=== PATIENT | female | born 1965 | race Caucasian/White ===

== ENCOUNTER 2018-12-04 20:28 | Inpatient (IN) ==
--- NOTE | 2018-12-04 20:33 | Emergency Department Note ---
Disposition Clinical Impression: Suicidal ideations UTI (urinary tract infection) Qualifiers: Urinary tract infection type: acute cystitis Hematuria presence: without h ematuria Qualified Code(s): N30.00 - Acute cystitis without hematuria Disposition: Still a Patient Condition: Good Instructions: Urinary Tract Infection in Children (ED), Depression (ED) Reasons to Return/Additional Instructions: Return to the emergency department if you have any worsening of your current symptoms, or if you develop any new symptoms. Take all medications as prescribed. Follow emergency department visit by setting up an appointment with psychiatry as well as your primary care doctor within 5 days. Prescriptions: cephALEXin [Keflex] 500 mg PO BID #14 capsule Time of Disposition: 21:51 General Adult HPI - General Stated complaint: SI Time Seen by Provider: 12/04/18 20:32 Nursing Notes Reviewed: Yes Vital Signs Reviewed: Yes - History of Present Illness HPI Narrative: 53-year-old female with past history depression presents emergency department with suicidal ideations. Patient states she has been depressed lately, but has started to feel as if she wants to go into the middle of the road and Struck by a semi-. She states that she has never had a suicide attempt in the past, but has experienced suicidal ideations. Patient reports no auditory or visual hallucinations. Denies any other complaints at this time. States she took half of the gabapentin today for her left knee pain. She states that this is not a prescription of hers. - Related Data Previous Rx's Medication Instructions Recorded cephALEXin [Keflex] 500 mg PO BID #14 capsule 12/04/18 Allergies Allergy/AdvReac Type Severity Reaction Status Date / Time No Known Allergies Allergy Verified 06/09/18 04:30 All systems ED: reviewed and negative except as stated. Review of Systems: As Per HPI Constitutional: Denies: fever Cardiovascular: Denies: chest pain Psychiatric: Reports: depression, suicidal thoughts Past Medical History - Past Medical History Attestation: Yes The following information was validated with the patient. Medical history: Reports: no medical history Psychiatric history: Reports: anxiety, bipolar, depression - Social History Smoking Status: Current every day smoker Alcohol use: Reports: rarely, recent Drug use: Reports: none Physical Exam - General Limitations: no limitations General appearance: alert, in no apparent distress - Head Head exam: normocephalic - Eye Eye exam: Present: EOMI - ENT ENT exam: mucous membranes moist - Neck Neck exam: Present: trachea midline - Chest Chest inspection: Present: symmetric chest wall rise - Respiratory Respiratory exam: Present: normal lung sounds bilaterally. Absent: respiratory distress, accessory muscle use - Cardiovascular Cardiovascular exam: Present: regular rate, normal rhythm, normal heart sounds - Abdominal Exam Abdominal exam: Present: soft, Non-Tender. Absent: distention, guarding, rebound, rigidity - Extremities Exam Extremities exam: Present: full ROM, normal capillary refill - Back Exam Back exam: Present: full ROM - Neurological Exam Neurological exam: Present: alert, oriented X3 - Psychiatric Psychiatric exam: Present: depressed, suicidal ideation. Absent: manic, homicidal ideation - Skin Skin exam: Present: warm, dry, intact, normal color. Absent: rash Course Vital Signs Temperature 97.5 F L 12/04/18 20:33 Pulse Rate 70 12/04/18 20:33 Respiratory Rate 17 12/04/18 20:33 Blood Pressure 129/87 12/04/18 20:33 O2 Sat by Pulse Oximetry 97 12/04/18 20:33 Temperature 97.5 F L 12/04/18 20:33 Pulse Rate 70 12/04/18 20:33 Respiratory Rate 17 12/04/18 20:33 Blood Pressure 129/87 12/04/18 20:33 O2 Sat by Pulse Oximetry 97 12/04/18 20:33 Oxygen Delivery Oxygen Delivery Room Air Medical Decision Making - [facility] Narrative Medical decision making narrative: 53-year-old female presents emergency department with concern for suicidal ideations. We are obtaining labs. Patient does have evidence of urinary tract infection. Give first dose of Keflex here. Wrote a prescription for 7 days. Awaiting 1A to evaluate patient at time of shift change. Patient to be signed out to Dr. Ching and Dr. Bradshaw. - Lab Data Result diagrams: 12/04/18 20:40 12/04/18 20:40 Lab Results 12/04/18 12/04/18 12/04/18 Range/Units 20:40 20:40 20:56 WBC 7.4 (4.3-11.1) K/mcL RBC 4.09 (3.82-4.97) M/mcL Hgb 13.2 (11.5-15.4) g/dL Hct 39.4 (35.3-44.9) % MCV 96.3 (83.0-100.0) fL MCH 32.3 (28.0-33.3) pg MCHC 33.5 (31.6-35.5) g/dL RDW 12.3 (11.5-14.5) % Plt Count 246 (140-400) K/mcL MPV 10.0 (9.4-12.4) fL Immature Gran % 0.1 (0-4) % Seg Neutrophils % 61.9 % Lymphocytes % 27.7 % Monocytes % 5.1 % Eosinophils % 4.7 % Basophils % 0.5 % Neutrophils # 4.6 (1.6-8.9) K/mcL Lymphocytes # 2.1 (0.6-4.6) K/mcL Monocytes # 0.4 (0.0-1.3) K/mcL Eosinophils # 0.4 (0.0-0.6) K/mcL Basophils # 0.0 (0.0-0.2) K/mcL Sodium 141 (136-145) mEq/L Potassium 3.5 (3.5-5.1) mEq/L Chloride 110 H (98-107) mEq/L Carbon Dioxide 22 L (23-29) mEq/L BUN 7 (6-20) mg/dL Creatinine 0.75 (0.60-1.20) mg/dL Est GFR ( Amer) > 60 (> 60) Est GFR (Non-Af Amer) > 60 (> 60) BUN/Creatinine Ratio 9 (6-26) Glucose 95 (70-105) mg/dL Calculated Osmolality 290 (280-300) Calcium 9.2 (8.6-10.3) mg/dL Urine Color Yellow (Yellow) Urine Clarity Clear (Clear) Urine pH 6.0 (5.0-8.0) pH Units Ur Specific [place] 1.009 L (1.010-1.025) Urine Protein Negative (Neg-Trace) mg/dL Urine Glucose (UA) Normal (Normal) mg/dL Urine Ketones Negative (Negative) mg/dL Urine Blood Negative (Negative) Urine Nitrite Positive A (Negative) Urine Bilirubin Negative (Negative) Urine Urobilinogen Normal (Normal) mg/dL Ur Leukocyte Esterase Small H (Negative) Urine Microscopic RBC 0-3 (0-3) per hpf Urine Microscopic WBC 5-15 H (0-3) per hpf Ur Squamous Epith Cells Few (None-Few) per lpf Urine Bacteria Many H (None-Few) per hpf Hyaline Casts None Seen (None-Few) per lpf Salicylates < 2.5 L (15.0-30.0) mg/dL Urine Opiates Screen (Vtzhqm=521) ng/mL Ur Buprenorphine Scrn (Cutoff=5) ng/mL Acetaminophen < 10 L (10-20) mcg/mL Ur Barbiturates Screen (Nkcpfv=931) ng/mL Ur Phencyclidine Scrn (Cutoff=25) ng/mL Ur Amphetamines Screen (Zqaivu=6782) ng/mL U Benzodiazepines Scrn (Zqsetk=498) ng/mL Urine Cocaine Screen (Cutoff= 300) ng/mL U Marijuana (THC) Screen (Cutoff = 50) ng/mL Ur Drug Screen Interp Ethyl Alcohol < 10 (Less than 10) mg/dL 12/04/18 Range/Units 20:56 WBC (4.3-11.1) K/mcL RBC (3.82-4.97) M/mcL Hgb (11.5-15.4) g/dL Hct (35.3-44.9) % MCV (83.0-100.0) fL MCH (28.0-33.3) pg MCHC (31.6-35.5) g/dL RDW (11.5-14.5) % Plt Count (140-400) K/mcL MPV (9.4-12.4) fL Immature Gran % (0-4) % Seg Neutrophils % % Lymphocytes % % Monocytes % % Eosinophils % % Basophils % % Neutrophils # (1.6-8.9) K/mcL Lymphocytes # (0.6-4.6) K/mcL Monocytes # (0.0-1.3) K/mcL Eosinophils # (0.0-0.6) K/mcL Basophils # (0.0-0.2) K/mcL Sodium (136-145) mEq/L Potassium (3.5-5.1) mEq/L Chloride (98-107) mEq/L Carbon Dioxide (23-29) mEq/L BUN (6-20) mg/dL Creatinine (0.60-1.20) mg/dL Est GFR ( Amer) (> 60) Est GFR (Non-Af Amer) (> 60) BUN/Creatinine Ratio (6-26) Glucose (70-105) mg/dL Calculated Osmolality (280-300) Calcium (8.6-10.3) mg/dL Urine Color (Yellow) Urine Clarity (Clear) Urine pH (5.0-8.0) pH Units Ur Specific [place] (1.010-1.025) Urine Protein (Neg-Trace) mg/dL Urine Glucose (UA) (Normal) mg/dL Urine Ketones (Negative) mg/dL Urine Blood (Negative) Urine Nitrite (Negative) Urine Bilirubin (Negative) Urine Urobilinogen (Normal) mg/dL Ur Leukocyte Esterase (Negative) Urine Microscopic RBC (0-3) per hpf Urine Microscopic WBC (0-3) per hpf Ur Squamous Epith Cells (None-Few) per lpf Urine Bacteria (None-Few) per hpf Hyaline Casts (None-Few) per lpf Salicylates (15.0-30.0) mg/dL Urine Opiates Screen Negative (Tytejk=160) ng/mL Ur Buprenorphine Scrn Negative (Cutoff=5) ng/mL Acetaminophen (10-20) mcg/mL Ur Barbiturates Screen Negative (Gvzpyq=338) ng/mL Ur Phencyclidine Scrn Negative (Cutoff=25) ng/mL Ur Amphetamines Screen Negative (Otetgq=0499) ng/mL U Benzodiazepines Scrn Positive H (Mcdltl=392) ng/mL Urine Cocaine Screen Negative (Cutoff= 300) ng/mL U Marijuana (THC) Screen Negative (Cutoff = 50) ng/mL Ur Drug Screen Interp See Below Ethyl Alcohol (Less than 10) mg/dL Attestation Statement - Attestation Attestation: Patient was seen with resident physician. I reviewed the history, physical, assessment and plan, and agree with the findings. I also personally evaluated this patient and had [id number] time with this patient. 53-year-old female presents emergency part chief complaint of suicidal ideation and depression. Patient states she has had a history of depression in the past and she has been admitted for it before. She said she has had suicidal ideation before she has never had an actual attempt. Now her plan is to jump in front of a semitruck. She has been feeling bad for about a week ultimately prompting her visit to the emergency department today. She denies nausea vomiting fevers chills or other complaints. She does have some chronic left knee pain for which she took a 400 mg gabapentin that had not been officially prescribed to her. Review of systems as above remainder negative. Physical exam vital signs stable. ENT unremarkable. Heart regular rhythm rate lungs clear. Abdomen soft nontender. Extremities unremarkable. Neurologically intact. Skin no rashes. Psych depressed somewhat of a flat affect. ED course. We will do the usual medical clearance labs and urinalysis we will have one a come talk to and evaluate this patient for disposition. Final evaluation was pending at the time of shift change. Patient was signed out to the shift superintendent team for final disposition. Hemodynamically she was stable thr oughout her stay in the emergency department under my care. I agree with the resident physician assessment and plan.
[2018-12-04 21:09] LABS: Basophils % 0.5 %; Eosinophils # 0.4 K/mcL (0.0-0.6); Eosinophils % 4.7 %; Hematocrit 39.4 % (35.3-44.9); Hemoglobin 13.2 g/dL (11.5-15.4); Immature Granulocytes % 0.1 % (0-4); Lymphocytes # 2.1 K/mcL (0.6-4.6); Lymphocytes % 27.7 %; Mean Corpuscular HGB Conc 33.5 g/dL (31.6-35.5); Mean Corpuscular Hemoglobin 32.3 pg (28.0-33.3); Mean Corpuscular Volume 96.3 fL (83.0-100.0); Monocytes # 0.4 K/mcL (0.0-1.3); Monocytes % 5.1 %; Neutrophils # 4.6 K/mcL (1.6-8.9); Platelet Count 246 K/mcL (140-400); Red Blood Count 4.09 M/mcL (3.82-4.97); Red Cell Distribution Width 12.3 % (11.5-14.5); Segmented Neutrophils % 61.9 %; White Blood Count 7.4 K/mcL (4.3-11.1)
[2018-12-04 21:12] LABS: Bilirubin,Urine Negative (Negative); Blood,Urine Negative (Negative); Clarity,Urine Clear (Clear); Color,Urine Yellow (Yellow); Glucose,Urine (UA) Normal (Normal); Ketones,Urine Negative (Negative); Leukocyte Esterase,Urine Small (Negative); Nitrite,Urine Positive (Negative); Protein,Urine Negative (Neg-Trace); Specific Gravity,Urine 1.009 (1.010-1.025); Urobilinogen,Urine Normal (Normal)
[2018-12-04 21:17] LABS: Bacteria,Urine Many per hpf (None-Few); Hyaline Casts,Urine None Seen per lpf (None-Few); RBC,Urine 0-3 per hpf (0-3); Squamous Epithelial Cell,Urine Few per lpf (None-Few)
[2018-12-04 21:27] LABS: Acetaminophen < 10 mcg/mL (10-20); BUN/Creatinine Ratio 9 (6-26); Blood Urea Nitrogen 7 mg/dL (6-20); Calcium 9.2 mg/dL (8.6-10.3); Carbon Dioxide 22 mEq/L (23-29); Chloride 110 mEq/L (98-107); Ethanol < 10 mg/dL (Less than 10); Glucose 95 mg/dL (70-105); Osmolality,Calculated 290 (280-300); Potassium 3.5 mEq/L (3.5-5.1); Salicylate < 2.5 mg/dL (15.0-30.0); Sodium 141 mEq/L (136-145); eGFR For African Americans > 60 (> 60); eGFR For Non-African Americans > 60 (> 60)
[2018-12-04 21:30] LABS: Amphetamine Screen,Urine Negative ng/mL (Cutoff=1000); Barbiturate Screen,Urine Negative ng/mL (Cutoff=200); Benzodiazepines Screen,Urine Positive ng/mL (Cutoff=200); Cannabinoid Screen,Urine Negative ng/mL (Cutoff = 50); Cocaine Screen,Urine Negative ng/mL (Cutoff= 300); Opiate Screen,Urine Negative ng/mL (Cutoff=300); Phencyclidine Screen,Urine Negative ng/mL (Cutoff=25)
[2018-12-04] MEDS ORDERED: cephALEXin 500 MG CAPSULE PO STA (21:50)
[2018-12-04] MEDS ORDERED: Nicotine 14 MG PATCH.TD24 TD STA (22:26)
--- NOTE | 2018-12-05 03:37 | Emergency Department Note ---
Disposition Clinical Impression: Suicidal ideations UTI (urinary tract infection) Qualifiers: Urinary tract infection type: acute cystitis Hematuria presence: without h ematuria Qualified Code(s): N30.00 - Acute cystitis without hematuria Disposition: Admitted As Inpatient Condition: Good Instructions: Urinary Tract Infection in Children (ED), Depression (ED) Reasons to Return/Additional Instructions: Return to the emergency department if you have any worsening of your current symptoms, or if you develop any new symptoms. Take all medications as prescribed. Follow emergency department visit by setting up an appointment with psychiatry as well as your primary care doctor within 5 days. Prescriptions: cephALEXin [Keflex] 500 mg PO BID #14 capsule Referrals: NONE,PCP [Primary Care Provider] - Time of Disposition: 03:36 General Adult HPI - General Chief complaint: ED Psychiatric Symptoms Stated complaint: SI Time Seen by Provider: 12/04/18 20:32 Source: EMS Limitations: no limitations - History of Present Illness Pain Scale: 0 - Related Data Previous Rx's Medication Instructions Recorded cephALEXin [Keflex] 500 mg PO BID #14 capsule 12/04/18 Allergies Allergy/AdvReac Type Severity Reaction Status Date / Time No Known Allergies Allergy Verified 06/09/18 04:30 Constitutional: Denies: fever Cardiovascular: Denies: chest pain Psychiatric: Reports: depression, suicidal thoughts Past Medical History - Past Medical History Medical history: Reports: no medical history Psychiatric history: Reports: anxiety, bipolar, depression - Social History Smoking Status: Current every day smoker Smokeless Tobacco Status: No Alcohol use: Reports: rarely, recent Drug use: Reports: none Physical Exam - General Limitations: no limitations General appearance: alert, in no apparent distress Course Course Narrative: Patient was signed out pending evaluation by Ia. The patient was seen by the Ia screener and the patient was accepted to the 1A service Vital Signs Temperature 97.5 F L 12/04/18 20:33 Pulse Rate 70 12/04/18 20:33 Respiratory Rate 17 12/04/18 20:33 Blood Pressure 129/87 12/04/18 20:33 O2 Sat by Pulse Oximetry 97 12/04/18 20:33 Temperature 97.5 F L 12/04/18 20:33 Pulse Rate 70 12/04/18 20:33 Respiratory Rate 17 12/04/18 20:33 Blood Pressure 129/87 12/04/18 20:33 O2 Sat by Pulse Oximetry 97 12/04/18 20:33 Oxygen Delivery Oxygen Delivery Room Air Medical Decision Making - Lab Data Result diagrams: 12/04/18 20:40 12/04/18 20:40 Lab Results 12/04/18 12/04/18 12/04/18 Range/Units 20:40 20:40 20:56 WBC 7.4 (4.3-11.1) K/mcL RBC 4.09 (3.82-4.97) M/mcL Hgb 13.2 (11.5-15.4) g/dL Hct 39.4 (35.3-44.9) % MCV 96.3 (83.0-100.0) fL MCH 32.3 (28.0-33.3) pg MCHC 33.5 (31.6-35.5) g/dL RDW 12.3 (11.5-14.5) % Plt Count 246 (140-400) K/mcL MPV 10.0 (9.4-12.4) fL Immature Gran % 0.1 (0-4) % Seg Neutrophils % 61.9 % Lymphocytes % 27.7 % Monocytes % 5.1 % Eosinophils % 4.7 % Basophils % 0.5 % Neutrophils # 4.6 (1.6-8.9) K/mcL Lymphocytes # 2.1 (0.6-4.6) K/mcL Monocytes # 0.4 (0.0-1.3) K/mcL Eosinophils # 0.4 (0.0-0.6) K/mcL Basophils # 0.0 (0.0-0.2) K/mcL Sodium 141 (136-145) mEq/L Potassium 3.5 (3.5-5.1) mEq/L Chloride 110 H (98-107) mEq/L Carbon Dioxide 22 L (23-29) mEq/L BUN 7 (6-20) mg/dL Creatinine 0.75 (0.60-1.20) mg/dL Est GFR ( Amer) > 60 (> 60) Est GFR (Non-Af Amer) > 60 (> 60) BUN/Creatinine Ratio 9 (6-26) Glucose 95 (70-105) mg/dL Calculated Osmolality 290 (280-300) Calcium 9.2 (8.6-10.3) mg/dL Urine Color Yellow (Yellow) Urine Clarity Clear (Clear) Urine pH 6.0 (5.0-8.0) pH Units Ur Specific [place] 1.009 L (1.010-1.025) Urine Protein Negative (Neg-Trace) mg/dL Urine Glucose (UA) Normal (Normal) mg/dL Urine Ketones Negative (Negative) mg/dL Urine Blood Negative (Negative) Urine Nitrite Positive A (Negative) Urine Bilirubin Negative (Negative) Urine Urobilinogen Normal (Normal) mg/dL Ur Leukocyte Esterase Small H (Negative) Urine Microscopic RBC 0-3 (0-3) per hpf Urine Microscopic WBC 5-15 H (0-3) per hpf Ur Squamous Epith Cells Few (None-Few) per lpf Urine Bacteria Many H (None-Few) per hpf Hyaline Casts None Seen (None-Few) per lpf Salicylates < 2.5 L (15.0-30.0) mg/dL Urine Opiates Screen (Kuvmyj=876) ng/mL Ur Buprenorphine Scrn (Cutoff=5) ng/mL Acetaminophen < 10 L (10-20) mcg/mL Ur Barbiturates Screen (Mtgmtj=569) ng/mL Ur Phencyclidine Scrn (Cutoff=25) ng/mL Ur Amphetamines Screen (Wmajtj=5040) ng/mL U Benzodiazepines Scrn (Brsdng=073) ng/mL Urine Cocaine Screen (Cutoff= 300) ng/mL U Marijuana (THC) Screen (Cutoff = 50) ng/mL Ur Drug Screen Interp Ethyl Alcohol < 10 (Less than 10) mg/dL 12/04/18 Range/Units 20:56 WBC (4.3-11.1) K/mcL RBC (3.82-4.97) M/mcL Hgb (11.5-15.4) g/dL Hct (35.3-44.9) % MCV (83.0-100.0) fL MCH (28.0-33.3) pg MCHC (31.6-35.5) g/dL RDW (11.5-14.5) % Plt Count (140-400) K/mcL MPV (9.4-12.4) fL Immature Gran % (0-4) % Seg Neutrophils % % Lymphocytes % % Monocytes % % Eosinophils % % Basophils % % Neutrophils # (1.6-8.9) K/mcL Lymphocytes # (0.6-4.6) K/mcL Monocytes # (0.0-1.3) K/mcL Eosinophils # (0.0-0.6) K/mcL Basophils # (0.0-0.2) K/mcL Sodium (136-145) mEq/L Potassium (3.5-5.1) mEq/L Chloride (98-107) mEq/L Carbon Dioxide (23-29) mEq/L BUN (6-20) mg/dL Creatinine (0.60-1.20) mg/dL Est GFR ( Amer) (> 60) Est GFR (Non-Af Amer) (> 60) BUN/Creatinine Ratio (6-26) Glucose (70-105) mg/dL Calculated Osmolality (280-300) Calcium (8.6-10.3) mg/dL Urine Color (Yellow) Urine Clarity (Clear) Urine pH (5.0-8.0) pH Units Ur Specific [place] (1.010-1.025) Urine Protein (Neg-Trace) mg/dL Urine Glucose (UA) (Normal) mg/dL Urine Ketones (Negative) mg/dL Urine Blood (Negative) Urine Nitrite (Negative) Urine Bilirubin (Negative) Urine Urobilinogen (Normal) mg/dL Ur Leukocyte Esterase (Negative) Urine Microscopic RBC (0-3) per hpf Urine Microscopic WBC (0-3) per hpf Ur Squamous Epith Cells (None-Few) per lpf Urine Bacteria (None-Few) per hpf Hyaline Casts (None-Few) per lpf Salicylates (15.0-30.0) mg/dL Urine Opiates Screen Negative (Igmstd=339) ng/mL Ur Buprenorphine Scrn Negative (Cutoff=5) ng/mL Acetaminophen (10-20) mcg/mL Ur Barbiturates Screen Negative (Dwjekk=494) ng/mL Ur Phencyclidine Scrn Negative (Cutoff=25) ng/mL Ur Amphetamines Screen Negative (Acpqvs=3533) ng/mL U Benzodiazepines Scrn Positive H (Hcnsvx=040) ng/mL Urine Cocaine Screen Negative (Cutoff= 300) ng/mL U Marijuana (THC) Screen Negative (Cutoff = 50) ng/mL Ur Drug Screen Interp See Below Ethyl Alcohol (Less than 10) mg/dL
[2018-12-05] MEDS ORDERED: hydrOXYzine pamoate 25 MG CAPSULE PO STA (04:02)
[2018-12-05] MEDS ORDERED: Acetaminophen 325 MG TABLET PO PRN (04:34)
[2018-12-05] MEDS ORDERED: Haloperidol Lactate 5 MG/ML VIAL IM PRN (04:34)
[2018-12-05] MEDS ORDERED: traZODone 50 MG TABLET PO PRN (04:34)
[2018-12-05] MEDS ORDERED: *HR* LORazepam 2 MG/ML VIAL IM PRN (04:34)
[2018-12-05] MEDS ORDERED: Mag Hydrox/Al Hydrox/Simeth 30 ML UDC PO PRN (04:34)
[2018-12-05] MEDS ORDERED: MOM Conc 10 ML UD.LIQ PO PRN (04:34)
[2018-12-05] MEDS ORDERED: *HR* LORazepam 1 MG TABLET PO PRN (04:34)
[2018-12-05] MEDS ORDERED: hydrOXYzine pamoate 25 MG CAPSULE PO PRN (04:34)
[2018-12-05] MEDS: Nicotine 21 MG PATCH.TD24 TD SCH (09:15)
[2018-12-05] MEDS: cephALEXin 500 MG CAPSULE PO SCH ×2 (09:15→21:02)
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
[2018-12-05] MEDS ORDERED: Ibuprofen 400 MG TABLET PO PRN (11:14)
[2018-12-06] MEDS: Nicotine 21 MG PATCH.TD24 TD SCH (09:29)
[2018-12-06] MEDS: cephALEXin 500 MG CAPSULE PO SCH (09:29)
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
[2018-12-06 09:59] VITALS: BP 165/84
== END 2018-12-06 12:15 | disposition home or self-care (01) | DRG 885 ==
LOC: EMEROOARM 20:28 → 1ANU 12-05 04:06 → SUATTDRO 12-05 04:06 → 1ANU 12-05 04:24
PROVIDERS: ADMIT Psychiatry & Neurology Psychiatry; ATTEND Psychiatry & Neurology Psychiatry